=== PATIENT | female | born 1980 | race Caucasian/White ===

== ENCOUNTER 2017-05-18 20:36 | Observation (INO) ==
--- NOTE | 2017-05-18 20:46 | Emergency Department Note ---
Disposition Clinical Impression: Chest pain Disposition: Admitted As Inpatient Condition: Good Referrals: Sobia Quiles CNP [Primary Care Provider] - General Adult HPI - General Stated complaint: anxiety,abnormal ekg,SOB,Chest Pain Time Seen by Provider: 05/18/17 20:46 Source: patient Mode of arrival: EMS Limitations: no limitations Nursing Notes Reviewed: Yes Vital Signs Reviewed: Yes - History of Present Illness HPI Narrative: 36-year-old white female presents emergency department via private vehicle after being seen at urgent care complaining of chest pain. She says for the last several days she has felt a tight, pressure-like pain in her chest. She says that initially she thought that it was anxiety occurs she is a single mother with 2 teenage children. Her symptoms persisted enough today that she thought that she should be checked out. She says that her chest tightness makes her feel short of breath. She has not had a problem with her heart in the past. She has a history of hypertension and diabetes. Her father had an OK at age 34. She does not smoke. She has had no medicines prior to her arrival. - Related Data Home Medications Medication Instructions Recorded Confirmed Atorvastatin 05/18/17 Losartan 05/18/17 Metformin HCl 05/18/17 Allergies Allergy/AdvReac Type Severity Reaction Status Date / Time No Known Allergies Allergy Verified 03/21/17 14:03 All systems ED: reviewed and negative except as stated. Constitutional: Denies: fever, chills, weakness, weight change Eyes: Denies: eye pain, eye discharge, vision change ENT ED: Denies: ear pain, throat pain, dental pain, hearing loss, epistaxis, congestion, dysphagia Cardiovascular: Reports: as per HPI, chest pain. Denies: palpitations, dyspnea on exertion Respiratory: Reports: as per HPI, dyspnea Gastrointestinal: Denies: abdominal pain, nausea, vomiting, diarrhea, constipation, hematemesis, melena, hematochezia Genitourinary: Denies: dysuria, frequency, hematuria, discharge Musculoskeletal: Denies: back pain, neck pain, arthralgia, myalgia Integumentary: Denies: rash, abrasion, lesions Neurological: Denies: headache, weakness, numbness, paresthesias, confusion, abnormal gait, vertigo Psychiatric: Denies: anxiety, depression, suicidal thoughts, homicidal thoughts , auditory hallucinations, visual hallucinations Endocrine: Denies: fatigue Hematological/Lymphatic: Denies: easy bleeding, easy bruising Allergic/Immunologic: Denies: facial swelling, urticaria Past Medical History - Past Medical History Medical history: Reports: diabetes, hyperlipidemia, hypertension - Social History Smoking Status: Never smoker Smokeless Tobacco Status: No Alcohol use: Reports: none Physical Exam - General Limitations: no limitations General appearance: alert, in no apparent distress - Head Head exam: atraumatic, normocephalic, normal inspection - Eye Eye exam: Present: normal appearance, PERRL, EOMI - ENT ENT exam: normal exam, normal oropharynx, mucous membranes moist - Neck Neck exam: Present: normal inspection, full ROM, trachea midline - Chest Chest inspection: Present: normal inspection, symmetric chest wall rise, other ( No tenderness with palpation, subcutaneous air or crepitus). Absent: tenderness - Respiratory Respiratory exam: Present: normal lung sounds bilaterally - Cardiovascular Cardiovascular exam: Present: regular rate, normal rhythm, normal heart sounds - Abdominal Exam Abdominal exam: Present: soft, Non-Tender. Absent: tenderness, distention, guarding, rebound, rigidity, organomegaly, pulsatile mass - Extremities Exam Extremities exam: Present: normal inspection, full ROM. Absent: tenderness, pedal edema - Back Exam Back exam: Present: normal inspection, full ROM. Absent: tenderness - Neurological Exam Neurological exam: Present: alert, oriented X3 - Psychiatric Psychiatric exam: Present: normal affect, normal mood - Skin Skin exam: Present: warm, dry, intact, normal color Course Course Narrative: The patient remained stable without complaint throughout her emergency department stay. Vital Signs Temperature 98.0 F 05/18/17 20:48 Pulse Rate 56 05/18/17 20:48 Respiratory Rate 16 05/18/17 20:48 Blood Pressure 147/81 05/18/17 20:48 O2 Sat by Pulse Oximetry 99 05/18/17 20:48 Temperature 98.0 F 05/18/17 20:48 Pulse Rate 56 05/18/17 20:48 Respiratory Rate 16 05/18/17 20:48 Blood Pressure 147/81 05/18/17 20:48 O2 Sat by Pulse Oximetry 99 05/18/17 20:48 Oxygen Delivery Oxygen Delivery Room Air Medical Decision Making - Lab Data Lab results reviewed: Yes I reviewed the patient's lab results. Result diagrams: 05/18/17 21:30 05/18/17 21:30 Lab Results 05/18/17 05/18/17 05/18/17 Range/Units 21:30 21:30 21:30 WBC 13.5 H (4.3-11.1) K/mcL RBC 4.60 (3.82-4.97) M/mcL Hgb 13.7 (11.5-15.4) g/dL Hct 39.3 (35.3-44.9) % MCV 85.4 (83.0-100.0) fL MCH 29.8 (28.0-33.3) pg MCHC 34.9 (31.6-35.5) g/dL RDW 11.9 (11.5-14.5) % Plt Count 341 (140-400) K/mcL MPV 10.3 (9.4-12.4) fL Immature Gran % 0.4 (0-4) % Seg Neutrophils % 64.2 % Lymphocytes % 29.4 % Monocytes % 4.5 % Eosinophils % 1.0 % Basophils % 0.5 % Neutrophils # 8.7 (1.6-8.9) K/mcL Lymphocytes # 4.0 (0.6-4.6) K/mcL Monocytes # 0.6 (0.0-1.3) K/mcL Eosinophils # 0.1 (0.0-0.6) K/mcL Basophils # 0.1 (0.0-0.2) K/mcL PT 11.9 (9.4-12.1) Seconds INR 1.1 Sodium (136-145) mEq/L Potassium (3.5-4.5) mEq/L Chloride (98-109) mEq/L Carbon Dioxide (19-29) mEq/L BUN (7-20) mg/dL Creatinine (0.57-1.11) mg/dL Est GFR ( Amer) (> 60) Est GFR (Non-Af Amer) (> 60) BUN/Creatinine Ratio (6-26) Glucose (70-99) mg/dL Calculated Osmolality (280-300) Calcium (8.6-10.8) mg/dL Total Bilirubin (0.2-1.2) mg/dL AST (5-34) Units/L ALT (0-55) Units/L Alkaline Phosphatase (38-126) Units/L Troponin I (0-0.03) ng/mL Serum Total Protein (6.0-8.3) g/dL Albumin (3.5-5.0) g/dL Globulin (2.4-3.5) g/dL Albumin/Globulin Ratio (1.1-2.2) Urine Color Yellow (Yellow) Urine Clarity Slightly Cloudy A (Clear) Urine pH 6.5 (5.0-8.0) pH Units Ur Specific Bertha 1.020 (1.010-1.025) Urine Protein Negative (Neg-Trace) mg/dL Urine Glucose (UA) Normal (Normal) mg/dL Urine Ketones Negative (Negative) mg/dL Urine Blood Moderate H (Negative) Urine Nitrite Negative (Negative) Urine Bilirubin Negative (Negative) Urine Urobilinogen Normal (Normal) mg/dL Ur Leukocyte Esterase Negative (Negative) Urine Microscopic RBC 3-5 H (0-3) per hpf Urine Microscopic WBC Test Not Performed Ur Squamous Epith Cells Few (None-Few) per lpf Amorphous Sediment Few (Few) Ur Culture Indicated? NO (NO) Urine Test (Negative) 05/18/17 05/18/17 05/18/17 Range/Units 21:30 21:30 21:30 WBC (4.3-11.1) K/mcL RBC (3.82-4.97) M/mcL Hgb (11.5-15.4) g/dL Hct (35.3-44.9) % MCV (83.0-100.0) fL MCH (28.0-33.3) pg MCHC (31.6-35.5) g/dL RDW (11.5-14.5) % Plt Count (140-400) K/mcL MPV (9.4-12.4) fL Immature Gran % (0-4) % Seg Neutrophils % % Lymphocytes % % Monocytes % % Eosinophils % % Basophils % % Neutrophils # (1.6-8.9) K/mcL Lymphocytes # (0.6-4.6) K/mcL Monocytes # (0.0-1.3) K/mcL Eosinophils # (0.0-0.6) K/mcL Basophils # (0.0-0.2) K/mcL PT (9.4-12.1) Seconds INR Sodium 140 (136-145) mEq/L Potassium 3.5 (3.5-4.5) mEq/L Chloride 101 (98-109) mEq/L Carbon Dioxide 26 (19-29) mEq/L BUN 8 (7-20) mg/dL Creatinine 0.77 (0.57-1.11) mg/dL Est GFR ( Amer) > 60 (> 60) Est GFR (Non-Af Amer) > 60 (> 60) BUN/Creatinine Ratio 10 (6-26) Glucose 126 H (70-99) mg/dL Calculated Osmolality 290 (280-300) Calcium 10.0 (8.6-10.8) mg/dL Total Bilirubin 0.4 (0.2-1.2) mg/dL AST 18 (5-34) Units/L ALT 17 (0-55) Units/L Alkaline Phosphatase 94 (38-126) Units/L Troponin I 0.00 (0-0.03) ng/mL Serum Total Protein 8.1 (6.0-8.3) g/dL Albumin 4.1 (3.5-5.0) g/dL Globulin 4.0 H (2.4-3.5) g/dL Albumin/Globulin Ratio 1.0 L (1.1-2.2) Urine Color (Yellow) Urine Clarity (Clear) Urine pH (5.0-8.0) pH Units Ur Specific Bertha (1.010-1.025) Urine Protein (Neg-Trace) mg/dL Urine Glucose (UA) (Normal) mg/dL Urine Ketones (Negative) mg/dL Urine Blood (Negative) Urine Nitrite (Negative) Urine Bilirubin (Negative) Urine Urobilinogen (Normal) mg/dL Ur Leukocyte Esterase (Negative) Urine Microscopic RBC (0-3) per hpf Urine Microscopic WBC Ur Squamous Epith Cells (None-Few) per lpf Amorphous Sediment (Few) Ur Culture Indicated? (NO) Urine Test Negative (Negative) - Radiology Data Radiology results reviewed: Yes I reviewed the patient's radiology results. - EKG Data EKG #1 EKG results narrative: Twelve-lead EKG showed normal sinus rhythm with a rate of 89. Frequent premature ventricular complexes. No acute ST elevation or depression appreciated. Normal axis
[2017-05-18] MEDS ORDERED: Ondansetron ODT 4 MG TAB.RAPDIS SL ONE (21:10)
[2017-05-18] MEDS ORDERED: Aspirin 81 MG TAB.CHEW PO STA (21:10)
[2017-05-18] MEDS ORDERED: *HR* Morphine 2 MG/ML SYRINGE IVP ONE (21:10)
[2017-05-18] MEDS ORDERED: *HR* LORazepam 2 MG/ML VIAL IVP ONE (21:10)
[2017-05-18 21:40] LABS: Basophils # 0.1 K/mcL (0.0-0.2); Basophils % 0.5 %; Eosinophils # 0.1 K/mcL (0.0-0.6); Hematocrit 39.3 % (35.3-44.9); Hemoglobin 13.7 g/dL (11.5-15.4); Immature Granulocytes % 0.4 % (0-4); Lymphocytes % 29.4 %; Mean Corpuscular HGB Conc 34.9 g/dL (31.6-35.5); Mean Corpuscular Hemoglobin 29.8 pg (28.0-33.3); Mean Corpuscular Volume 85.4 fL (83.0-100.0); Mean Platelet Volume 10.3 fL (9.4-12.4); Monocytes # 0.6 K/mcL (0.0-1.3); Monocytes % 4.5 %; Neutrophils # 8.7 K/mcL (1.6-8.9); Platelet Count 341 K/mcL (140-400); Red Cell Distribution Width 11.9 % (11.5-14.5); Segmented Neutrophils % 64.2 %
[2017-05-18 21:43] LABS: Bilirubin,Urine Negative (Negative); Blood,Urine Moderate (Negative); Clarity,Urine Slightly Cloudy (Clear); Glucose,Urine (UA) Normal (Normal); Ketones,Urine Negative (Negative); Leukocyte Esterase,Urine Negative (Negative); Nitrite,Urine Negative (Negative); PH,Urine 6.5 pH Units (5.0-8.0); Protein,Urine Negative (Neg-Trace); Urobilinogen,Urine Normal (Normal)
[2017-05-18 21:44] LABS: Color,Urine Yellow (Yellow)
[2017-05-18 21:45] LABS: Amorphous Sediment,Urine Few (Few); INR 1.1; Prothrombin Time 11.9 Seconds (9.4-12.1); Squamous Epithelial Cell,Urine Few per lpf (None-Few)
[2017-05-18 21:54] LABS: Alanine Aminotransferase 17 Units/L (0-55); Albumin 4.1 g/dL (3.5-5.0); Alkaline Phosphatase 94 Units/L (38-126); Aspartate Amino Transferase 18 Units/L (5-34); BUN/Creatinine Ratio 10 (6-26); Bilirubin,Total 0.4 mg/dL (0.2-1.2); Blood Urea Nitrogen 8 mg/dL (7-20); Carbon Dioxide 26 mEq/L (19-29); Chloride 101 mEq/L (98-109); Glucose 126 mg/dL (70-99); Osmolality,Calculated 290 (280-300); Potassium 3.5 mEq/L (3.5-4.5); Sodium 140 mEq/L (136-145); Total Protein 8.1 g/dL (6.0-8.3); eGFR For African Americans > 60 (> 60); eGFR For Non-African Americans > 60 (> 60)
[2017-05-18] MEDS ORDERED: Ondansetron ODT 4 MG TAB.RAPDIS SL PRN (23:39)
[2017-05-18] MEDS ORDERED: Ketorolac 30 MG/ML VIAL IVP PRN (23:39)
[2017-05-18] MEDS ORDERED: *HR* Promethazine 25 MG/ML VIAL IVP PRN (23:39)
[2017-05-18] MEDS ORDERED: Ibuprofen 400 MG TABLET PO PRN (23:39)
[2017-05-18] MEDS ORDERED: *HR* HYDROcodone/Acet 5/325 mg TABLET PO PRN (23:39)
[2017-05-18] MEDS ORDERED: Ondansetron 4 MG/2 ML VIAL IVP PRN (23:39)
[2017-05-18] MEDS ORDERED: Acetaminophen 325 MG TABLET PO PRN (23:39)
[2017-05-18] MEDS ORDERED: Naloxone 0.4 MG/ML INJ IVP PRN (23:39)
[2017-05-18] MEDS ORDERED: *HR* Morphine 2 MG/ML SYRINGE IVP PRN (23:39)
[2017-05-19 06:35] LABS: Basophils # 0.1 K/mcL (0.0-0.2); Basophils % 0.6 %; Eosinophils # 0.2 K/mcL (0.0-0.6); Eosinophils % 1.8 %; Hematocrit 34.8 % (35.3-44.9); Immature Granulocytes % 0.4 % (0-4); Lymphocytes % 35.4 %; Mean Corpuscular HGB Conc 34.5 g/dL (31.6-35.5); Mean Corpuscular Hemoglobin 29.9 pg (28.0-33.3); Mean Corpuscular Volume 86.8 fL (83.0-100.0); Mean Platelet Volume 10.3 fL (9.4-12.4); Monocytes # 0.5 K/mcL (0.0-1.3); Monocytes % 6.3 %; Neutrophils # 4.7 K/mcL (1.6-8.9); Platelet Count 309 K/mcL (140-400); Red Blood Count 4.01 M/mcL (3.82-4.97); Red Cell Distribution Width 11.9 % (11.5-14.5); Segmented Neutrophils % 55.5 %
[2017-05-19 06:36] LABS: INR 1.1; Prothrombin Time 11.7 Seconds (9.4-12.1)
[2017-05-19 06:45] LABS: BUN/Creatinine Ratio 13 (6-26); Blood Urea Nitrogen 10 mg/dL (7-20); Carbon Dioxide 27 mEq/L (19-29); Chloride 104 mEq/L (98-109); Glucose 135 mg/dL (70-99); Osmolality,Calculated 291 (280-300); Potassium 3.8 mEq/L (3.5-4.5); Sodium 140 mEq/L (136-145); eGFR For African Americans > 60 (> 60); eGFR For Non-African Americans > 60 (> 60)
[2017-05-19] MEDS ORDERED: *HR* Metformin 500 MG TABLET PO SCH (09:00)
--- NOTE | 2017-05-19 11:11 | Internal Med History&Physical ---
Date of Encounter: 05/19/17 Time of Encounter: 10:35 Assessment and Plan (1) Chest pain Current visit: No Status: Acute Negative troponins. The patient has one more pending should be negative we will discharge her home. States she has been under stress had a lot of anxiety lately Qualifiers: Chest pain type: unspecified Qualified Code(s): R07.9 - Chest pain, unspecified Internal Medicine - H&P: HPI Chief complaint: Patient presented to the emergency room from urgent care with chest pain an Admitted From: Emergency Dept History of present illness: Ms. Pitts is a 36 year old female He should not denies any previous history of heart problems but she is diabetic. Family history father young of heart disease. Past Med Surg Social Fam HX - Past Medical History Medical history: diabetes, hyperlipidemia, hypertension Psychiatric history: anxiety, depression - Past Surgical History Surgical History: hysterectomy - Social History Smoking Status: Never smoker Smokeless Tobacco Status: No Alcohol use: rarely Drug use: none Internal Medicine - H&P: Meds Atorvastatin 10 mg PO HS 05/18/17 [History] Losartan 100 mg PO HS 05/18/17 [History] Metformin HCl 500 mg PO BID 05/18/17 [History] Hydrochlorothiazide 25 mg PO HS 05/19/17 [History] 3 Allergy/AdvReac Type Severity Reaction Status Date / Time No Known Allergies Allergy Verified 03/21/17 14:03 All Systems PM: A 10-system review of systems was performed and is negative for pertinent findings except as documented above in the HPI. - Endocrine Endocrine IM: other Additional comments: Patient is diabetic - Constitutional Vitals: Temp Pulse Resp BP Pulse Ox 97.5 F L 67 16 100/63 99 05/19/17 07:39 05/19/17 07:39 05/19/17 07:39 05/19/17 07:39 05/19/17 07:39 - Head Head exam: Present: atraumatic, normal inspection, normocephalic - Neck Neck exam general surgery: Present: supple, trachea midline. Absent: lymphadenopathy - Respiratory Respiratory exam: Present: CTAB. Absent: accessory muscle use, rales, rhonchi, wheezes - Cardiovascular Cardiovascular exam: Present: RRR, +S1, +S2. Absent: diastolic murmur, gallop, rubs, systolic murmur Internal Med - H&P Results - Labs CBC & Chem 7: 05/19/17 06:19 05/19/17 06:19 Labs: Short CBC 05/19/17 Range/Units 06:19 WBC 8.4 (4.3-11.1) K/mcL Hgb 12.0 D (11.5-15.4) g/dL Hct 34.8 L (35.3-44.9) % Plt Count 309 (140-400) K/mcL Neutrophils # 4.7 (1.6-8.9) K/mcL BMP 05/19/17 06:19 Sodium 140 Potassium 3.8 Chloride 104 Carbon Dioxide 27 BUN 10 Creatinine 0.76 Glucose 135 H Calcium 9.0 Cardiac Enzymes 05/19/17 05/19/17 Range/Units 00:25 06:19 Troponin I 0.00 0.00 (0-0.03) ng/mL Lab is stable negative troponin - VTE Documentation of Mechanical Device: Graduated compression elastic hosiery
[2017-05-19 11:27] VITALS: BP 100/65
--- NOTE | 2017-05-19 14:28 | Discharge Summary ---
Date of Encounter: 05/19/17 Time of Encounter: 14:25 - Discharge Diagnosis (1) Chest pain Priority: Primary Status: Acute Comments: Troponins negative and the symptoms I think are secondary to anxiety and stress Qualifiers: Chest pain type: unspecified Qualified Code(s): R07.9 - Chest pain, unspecified - Discharge Medications Home Medications: Atorvastatin 10 mg PO HS 05/18/17 [History] Losartan 100 mg PO HS 05/18/17 [History] Metformin HCl 500 mg PO BID 05/18/17 [History] Hydrochlorothiazide 25 mg PO HS 05/19/17 [History] clonazePAM [Klonopin] 0.5 mg PO BID 05/19/17 [History] Allergies/Adverse Reactions: 3 Allergy/AdvReac Type Severity Reaction Status Date / Time No Known Allergies Allergy Verified 03/21/17 14:03 Date of admission: 05/18/17 22:52 Primary care physician: Sobia Quiles CNP Discharging clinician: Nestor Dumont Anticipated date of discharge: 05/19/17 - Patient Status Disposition: Home, Self-Care Overall status at discharge: patient is back to baseline - Discharge Instructions Follow Up With: Sobia Quiles CNP [Primary Care Provider] - 05/24/17 3:00 pm (follow up ) Forms: ED Satisfaction Letter - Diet and Activity Activity: resume usual activities as tolerated Diet: advance to your usual diet, diabetic diet Interval History: Chest pain is resolved and the patient has had negative troponins Hospital course: Ms. Pitts is a 36 year old female Discharge with stable vital signs negative troponin to follow up with her nurse practitioner at the local family practice. - Time Spent with Patient Total time spent providing and/or coordinating discharge services: Less than 30 minutes - Constitutional Vitals: Temp Pulse Resp BP Pulse Ox 98.0 F 68 16 100/65 98 05/19/17 11:00 05/19/17 11:00 05/19/17 11:00 05/19/17 11:00 05/19/17 11:00 - Head Head exam: Present: atraumatic, normocephalic - Respiratory Respiratory exam: Present: CTAB. Absent: accessory muscle use, rales, rhonchi, wheezes - Cardiovascular Cardiovascular exam: Present: RRR, +S1, +S2. Absent: diastolic murmur, gallop, rubs, systolic murmur - VTE Documentation of Mechanical Device: Graduated compression elastic hosiery
[2017-05-19] MEDS ORDERED: hydroCHLOROthiazide 25 MG TABLET PO SCH (21:00)
--- NOTE | 2017-05-20 16:53 | Electrocardiograph Report ---
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
== END 2017-05-19 15:00 | disposition home or self-care (01) ==
LOC: INPGRE 20:36 → EMEROOGRE 20:36 → INPGRE 23:30
PROVIDERS: ADMIT Internal Medicine; ATTEND Internal Medicine